=== PATIENT | male | born 1960 | race Caucasian/White ===

== ENCOUNTER 2017-05-15 20:56 | Emergency (ER) | payer OTHER ==
[~2017-05-15] VITALS: Ht 172.7 cm; Wt 93.2 kg
[~2017-05-15 20:56] MED LIST: HYDR-4003 PO; VENL75TA3 PO
[2017-05-15 21:01] VITALS: BP 141/90; PULSE 77; RESP 16; O2SAT 96
--- NOTE | 2017-05-15 21:17 | ED.REPORT ---
HPI-Syncope Date of Service May 15, 2017 ED Provider: Fransisco Charles MD The patient is a 57 year old male presenting to the ED with his complaining of unresponsiveness onset earlier tonight. He claims that he felt that a "wave" came over him and he does not remember much else about it. Per the patient's , he had another episode of unresponsiveness after arriving to the ED tonight. Associated symptoms include nausea, diaphoresis, and chills. He denies shortness of breath, palpitations, vomiting, cough, or ever having this feeling before. He claims that he was working out earlier today and felt fine. He took a Motrin earlier as well. Nursing Notes Stated Complaint: SEIZURE,HEART ISSUES Chief Complaint: Neuro Symptoms/ Deficits Nursing Notes Reviewed: Yes Allergies: Coded Allergies: No Known Allergies (Unverified , 05/15/17) Scheduled Venlafaxine (Venlafaxine) 75 Mg Tablet 75 MG PO DAILY Scheduled PRN Hydrocodone-Acetaminophen 5-325 mg (Hydrocodone-Acetaminophen 5-325 mg) 1 Each Tablet 1 TABLET PO QID PRN PRN For Pain General Time Seen by Provider: 21:16 Chief Complaint Became unresponsive Hx Obtained From: Patient Arrived By: Walk-in Onset Occurred: 1 - 4 hours ago Context of Onset: Occurred at home Symptom Duration: Intermittent Immunizations: Unknown Recent Healthcare: No recent doctor visit, No recent hospitalization Similar Sx Previous: No Past Medical History Past Medical History None reported Reports: Depression Past Surgical History Denies Smoking History Never Smoker Social History Occasional glass of wine or two most nights Alcohol Use: "Social" Other Social History: Good social support Ambulatory Status Independent Review of Systems Became unresponsive Constitutional: Reports: Chills, Denies: Fever Respiratory: Denies: Non-productive cough, Shortness of breath Cardiovascular: Denies: Palpitations GI: Reports: Nausea, Denies: Vomiting Skin: Reports Diaphoresis Neurologic: Denies: Headache Complete sys rev & neg: except as marked. Physical Exam Initial Vital Signs Vital Signs (First) Date Time Temp Pulse Resp B/P Pulse Ox O2 Delivery O2 Flow Rate FiO2 05/15/17 21:01 37.2 77 16 141/90 96 Room Air Initial VS: Reviewed, Vital signs normal Head / Eyes: Atraumatic, Normocephalic ENT: Mucous membranes moist Neck: Supple, Full range of motion Abdomen / GI: Soft, Non-tender Back: No CVA tenderness Lymphatic: No lymphadenopathy Upper Extremities: Vascular intact, Neuro intact Skin: Warm, Dry Psychiatric: Mood/affect normal, Behavior normal General/Constitutional: Awake, Alert, No acute distress, Well appearing Respiratory / Chest: Atraumatic, Breath sounds NL, Breath sounds = bilat, No respiratory distress Cardiovascular: Heart rate NL, Regular rhythm, Heart sounds NL Lower Extremity / Pelvis / MS: Atraumatic, Inspection NL, No edema Neurologic: Oriented X3, Speech NL, No motor deficits, No sensory deficits, CN II - XII intact Interpretation & Diagnostics Lab Results Interpretation Result Diagram: 05/15/17212105/[id number]/172121 Test 05/15/17 21:22 05/15/17 21:23 05/15/17 23:34 White Blood Count 9.3th/mm3 (3.8-10.1) Red Blood Count 4.85mil/mm3 (4.40-5.80) Hemoglobin 15.3g/dL (13.8-17.2) Hematocrit 44.2% (41.0-50.0) Mean Corpuscular Volume 91.1fL (81-100) Mean Corpuscular Hemoglobin 31.5pg (27.0-35.0) Mean Corpuscular Hemoglobin Concent 34.6% (32.0-37.0) Red Cell Distribution Width 11.9% (12.3-15.4) Platelet Count 230bil/L (150-400) Neutrophils (%) (Auto) 62.0% (40-74) Lymphocytes (%) (Auto) 26.8% (14-46) Monocytes (%) (Auto) 7.7% (4-12) Eosinophils (%) (Auto) 2.9% (0-5) Basophils (%) (Auto) 0.3% (0-3) Prothrombin Time 10.1sec (8.1-12.5) Prothromb Time International Ratio 0.95ratio Activated Partial Thromboplast Time 23.1sec (22.8-33.0) D-Dimer < 0.50mg/L FEU (<0.50) Sodium Level 137mEq/L (134-144) Potassium Level 4.4mEq/L (3.5-5.2) Chloride Level 100mEq/L (97-108) Carbon Dioxide Level 26mmol/L (18-29) Blood Urea Nitrogen 20mg/dL (6-24) Creatinine 1.05mg/dL (0.76-1.27) Estimat Glomerular Filtration Rate 78mL/min (>59) Glucose Level 98mg/dL (60-99) Calcium Level 9.2mg/dL (8.5-10.1) Magnesium Level 2.2mg/dL (1.6-2.6) Total Bilirubin 0.3mg/dL (0.0-1.2) Aspartate Amino Transf (AST/SGOT) 74U/L (0-50) Alanine Aminotransferase (ALT/SGPT) 91U/L (0-44) Alkaline Phosphatase 58U/L (25-150) Pro-B-Type Natriuretic Peptide < 5.00pg/mL (0-210) Total Protein 6.7g/dL (6.4-8.4) Albumin 4.4g/dL (3.4-5.0) Hold Yanez Top Tube Received (Received) Troponin T 0.010ug/L (0.0-0.011) ECG Interpretation Time: 21:13 Interpreted by: ED physician Normal ECG Interpretation: Normal ECG w/ rate of... (73), Normal sinus rhythm Time: 23:13 Interpreted by: ED physician Normal ECG Interpretation: Normal ECG w/ rate of... (73), Normal sinus rhythm X-Ray Chest Interpretation Chest Xray Interpretation: IMPRESSION: No acute pulmonary process. Dictated by: Angie Horner M.D. on 05/15/2017 at 21:42 View: Portable, 1 view Interpretation / Wet Read by: Interpret - Radiologist Re-Eval/Medical Decision Med Decision/Clinical Course 57-year-old with two separate brief syncopal episodes accompanied by vagal symptoms. No rhythm disturbance observed here. Enzymes negative 2. EKG unremarkable 2. D-dimer was negative. He is low risk for clot. Low risk for acute CO with no evidence of that. Discharged home now at his option with plan for early follow-up and follow-up testing including stress test, echo, and Holter monitoring. I believe this is a vasovagal episode by description. He received a liter fluid here and was not orthostatic prior to the fluid in any case. Re-Evaluation/Progress #1: Time of Eval: 23:02 Re-Evaluation/Progress Note: Patient rechecked. Discussed negative preliminary lab results. Re-Evaluation/Progress #2: Time of Eval: 00:33 Re-Evaluation/Progress Note: Patient rechecked. Discussed negative lab results and plan to discharge. The patient understands and agrees with the plan. All questions addressed at this time. Counseled Regarding: Diagnosis, Lab results, Need for follow-up, When/why to return to ED Discharge & Departure Impression: Primary Impression: Syncope and collapse Disposition: Home Discharge Condition All VS Reviewed: Yes Condition: Improved Patient Instructions: Syncope (ED), Syncope in Older Adults (ED) Additional Instructions: We do not find any evidence of heart attack, nor rhythm disturbance, nor blood clot, to explain your syncope. Additional evaluation is advisable. This would include a stress test, an echo, and a Holter monitor. Call your doctor this morning for follow-up in the next few days. Additional testing can be scheduled fairly soon. Return for any immediate issues, especially for recurrent episodes. Referrals: Kallie Hayden ARNP (PCP) [place] Attestation Portions of this note were transcribed by Ammon Cano. I, Dr. Charles personally performed the history, physical exam and medical decision-making; I reviewed and confirmed the accuracy of the information in the transcribed note. Signed by: Samina Ruiz, 05/15/2017 copies to: Kallie Hayden ARNP Roberts, Christopher W MD May 15, 2017 21:17 May 15, 2017 21:27
[2017-05-15 21:33] LABS: BASOPHILS % (AUTO) 0.3 % (0-3); EOSINOPHILS % (AUTO) 2.9 % (0-5); MONOCYTES % (AUTO) 7.7 % (4-12); Mean Corpuscular Hemoglobin 31.5 pg (27.0-35.0); Mean Corpuscular Volume 91.1 fL (81-100); Platelet Count 230 bil/L (150-400)
--- NOTE | 2017-05-15 21:44 | DRSVH ---
PROCEDURE: X-RAY CHEST ONE VIEW, PORTABLE ([id number]) INDICATIONS: syncope TECHNIQUE: One view of the chest was acquired. COMPARISON: None. FINDINGS: Surgical changes and devices: None. Lungs and pleura: No pleural effusions or pneumothorax. Lungs are clear. Mediastinum: Mediastinal contours appear normal. Heart size is normal. Bones and chest wall: No suspicious bony lesions. Overlying soft tissues appear unremarkable. IMPRESSION: No acute pulmonary process. Dictated by: Angie Horner M.D. on 05/15/2017 at 21:42 Approved by: Angie Horner M.D. on 05/15/2017 at 21:43
[2017-05-15 21:57] LABS: TROPONIN T 0.01 ug/L (0.0-0.011)
[2017-05-15 22:01] VITALS: BP 120/86; PULSE 74; RESP 20; O2SAT 93
[2017-05-15 22:08] LABS: Magnesium 2.2 mg/dL (1.6-2.6)
[2017-05-15 22:32] LABS: D-Dimer < 0.50 mg/L FEU (<0.50); INR 0.95 ratio
[2017-05-15] MEDS ORDERED: 0.9% Sodium Chloride 1,000 ML IV ONE (23:05)
[2017-05-15 23:41] VITALS: BP 123/82; PULSE 74; RESP 18; O2SAT 95
[2017-05-16 00:49] VITALS: BP 123/79; PULSE 79; RESP 19; O2SAT 95
== END 2017-05-16 00:50 | disposition home or self-care (01) ==
LOC: SED 20:56
DX: R55 Syncope and collapse (principal); R11.0 Nausea; F32.9 Major depressive disorder, single episode, unspecified
CPT/HCPCS: 36415; 71010; 80053; 83735; 83880; 84484; 85025; 85378; 85610; 85730; 93005; 96360; 99285; J7030